=== PATIENT | male | born 1960 | race Caucasian/White ===

== ENCOUNTER 2019-02-28 10:12 | Outpatient (CLI) | payer BC ==
--- NOTE | 2019-02-28 13:01 | RAD ---
RIGHT SHOULDER THREE VIEWS: HISTORY: Chronic pain without recent trauma. FINDINGS: There are degenerative changes in the acromioclavicular joint. No fracture, dislocation, or bony modesta truction is seen. POS: [facility]
--- NOTE | 2019-02-28 13:05 | RAD ---
LEFT SHOULDER THREE VIEW: 02/28/19 HISTORY: Chronic pain without trauma. COMPARISON: None. FINDINGS: Moderate narrowing of the acromioclavicular joint. Visualized ribs are normal. Mild narrowing of the subacromial space. No acute fracture or malalignment. IMPRESSION: Moderate degenerative changes. POS: [facility]
== END 2019-02-28 10:13 | disposition home or self-care (01) ==
LOC: MADRAD 10:12
PROVIDERS: ATTEND Family Medicine
DX: M75.51 Bursitis of right shoulder (principal); M75.52 Bursitis of left shoulder; M19.012 Primary osteoarthritis, left shoulder; M19.011 Primary osteoarthritis, right shoulder